=== PATIENT | male | born 1955 | race Caucasian/White ===

== ENCOUNTER 2019-07-08 16:48 | Inpatient (IN) ==
[2019-07-08] MEDS ORDERED: Isovue-370 500 ML BOTTLE IVP ONE (17:18)
[2019-07-08] MEDS ORDERED: 0.9 % Sodium Chloride 1,000 ML IV ONE (17:20)
[2019-07-08] MEDS ORDERED: Ondansetron 4 MG/2 ML VIAL IVP ONE (17:21)
[2019-07-08 17:38] LABS: Basophils % 0.1 %; Hemoglobin 12.9 g/dL (12.9-16.9); Immature Granulocytes % 0.5 % (0-4); Lymphocytes # 1.1 K/mcL (0.6-4.6); Lymphocytes % 8.5 %; Mean Corpuscular HGB Conc 31.5 g/dL (31.6-35.5); Mean Corpuscular Hemoglobin 28.7 pg (28.0-33.3); Mean Corpuscular Volume 91.3 fL (83.0-100.0); Mean Platelet Volume 9.8 fL (9.4-12.4); Monocytes # 0.6 K/mcL (0.0-1.3); Monocytes % 4.9 %; Neutrophils # 11.1 K/mcL (1.6-8.9); Platelet Count 198 K/mcL (140-400); Red Blood Count 4.49 M/mcL (4.19-5.50); Red Cell Distribution Width 13.1 % (11.5-14.5); White Blood Count 12.9 K/mcL (4.3-11.1)
[2019-07-08 17:58] LABS: Albumin 4.6 g/dL (3.5-5.7); Albumin/Globulin Ratio 1.3 (1.1-2.2); Bilirubin,Direct 0.3 mg/dL (0.0-0.2); Bilirubin,Indirect 0.6 mg/dL (0.0-1.0); Bilirubin,Total 0.9 mg/dL (0.3-1.0); Calcium 10.9 mg/dL (8.6-10.3); Globulin 3.6 g/dL (2.4-3.5); Potassium 4.3 mEq/L (3.5-5.1); Total Protein 8.2 g/dL (6.4-8.9)
[2019-07-08] MEDS ORDERED: *HR* HYDROmorphone (PF) 1 MG/ML SYRINGE IVP ONE (18:47)
[2019-07-08 18:51] LABS: Bilirubin,Urine Negative (Negative); Blood,Urine Negative (Negative); Clarity,Urine Clear (Clear); Color,Urine Yellow (Yellow); Glucose,Urine (UA) Normal (Normal); Ketones,Urine 15 mg/dL (Negative); Leukocyte Esterase,Urine Negative (Negative); Nitrite,Urine Negative (Negative); Protein,Urine 30 mg/dL (Neg-Trace); Specific Gravity,Urine 1.023 (1.010-1.025); Urobilinogen,Urine Normal (Normal)
[2019-07-08 18:54] LABS: Bacteria,Urine None Seen per hpf (None-Few); Hyaline Casts,Urine None Seen per lpf (None-Few); Squamous Epithelial Cell,Urine Many per lpf (None-Few)
[2019-07-08] MEDS ORDERED: Naloxone 0.4 MG/ML INJ IVP PRN (19:06)
[2019-07-08] MEDS: Ondansetron 4 MG/2 ML VIAL IVP PRN (22:16)
[2019-07-08] MEDS: Ringers Solution, Lactated 1,000 ML IVC SCH (22:16)
[2019-07-09 05:16] LABS: Basophils % 0.1 %; Hematocrit 36.5 % (37.5-50.1); Hemoglobin 11.8 g/dL (12.9-16.9); Immature Granulocytes % 0.4 % (0-4); Lymphocytes # 0.9 K/mcL (0.6-4.6); Lymphocytes % 7.9 %; Mean Corpuscular HGB Conc 32.3 g/dL (31.6-35.5); Mean Corpuscular Hemoglobin 29.5 pg (28.0-33.3); Mean Corpuscular Volume 91.3 fL (83.0-100.0); Mean Platelet Volume 10.1 fL (9.4-12.4); Monocytes # 0.8 K/mcL (0.0-1.3); Monocytes % 7.5 %; Neutrophils # 9.1 K/mcL (1.6-8.9); Platelet Count 146 K/mcL (140-400); Red Cell Distribution Width 13.1 % (11.5-14.5); Segmented Neutrophils % 84.1 %; White Blood Count 10.8 K/mcL (4.3-11.1)
[2019-07-09 05:37] LABS: BUN/Creatinine Ratio 26 (6-26); Blood Urea Nitrogen 34 mg/dL (8-23); Calcium 9.9 mg/dL (8.6-10.3); Carbon Dioxide 23 mEq/L (23-29); Chloride 107 mEq/L (98-107); Glucose 115 mg/dL (70-105); Magnesium 1.7 mg/dL (1.6-2.6); Osmolality,Calculated 293 (280-300); Potassium 4.2 mEq/L (3.5-5.1); Sodium 137 mEq/L (136-145); eGFR For African Americans > 60 (> 60); eGFR For Non-African Americans 55 (> 60)
[2019-07-09] MEDS: Ondansetron 4 MG/2 ML VIAL IVP PRN (06:25)
[2019-07-09] MEDS: *HR* Heparin 5,000 UNIT/ML VIAL SQ SCH ×2 (06:26→17:47)
[2019-07-09] MEDS: Ringers Solution, Lactated 1,000 ML IVC SCH (08:35)
[2019-07-09] MEDS ORDERED: MYCOPHENOLATE SODIUM 720 MG PO SCH (09:15)
[2019-07-09] MEDS ORDERED: CycloSPORINE, Mod (Neoral) 25 MG CAPSULE PO SCH (09:15)
[2019-07-10] MEDS: *HR* Heparin 5,000 UNIT/ML VIAL SQ SCH ×2 (06:15→17:51)
[2019-07-10] MEDS: CycloSPORINE, Mod (Neoral) 25 MG CAPSULE PO SCH ×2 (10:49→21:04)
[2019-07-10] MEDS: Mycophenolate Sodium (DR) 180 MG TABLET.DR PO SCH ×2 (10:50→21:04)
[2019-07-10] MEDS: Ondansetron 4 MG/2 ML VIAL IVP PRN (17:50)
[2019-07-10] MEDS: Sulfamethoxazole/Trimeth DS 1 EACH TABLET PO SCH ×2 (17:51→18:13)
[2019-07-10] MEDS ORDERED: 0.9 % Sodium Chloride 1,000 ML IV ONE (20:53)
[2019-07-11] MEDS: *HR* Heparin 5,000 UNIT/ML VIAL SQ SCH ×2 (06:04→18:17)
[2019-07-11] MEDS: CycloSPORINE, Mod (Neoral) 25 MG CAPSULE PO SCH ×2 (08:51→21:50)
[2019-07-11] MEDS: Mycophenolate Sodium (DR) 180 MG TABLET.DR PO SCH ×2 (08:51→21:50)
[2019-07-11] MEDS: Aspirin 81 MG TAB.CHEW PO SCH (08:51)
[2019-07-11] MEDS: allopurinoL 100 MG TABLET PO SCH (08:51)
[2019-07-11] MEDS: calcitrioL 0.25 MCG CAPSULE PO SCH (08:51)
[2019-07-11 09:05] LABS: Hematocrit 42.1 % (37.5-50.1); Mean Corpuscular HGB Conc 31.8 g/dL (31.6-35.5); Mean Corpuscular Volume 91.1 fL (83.0-100.0); Mean Platelet Volume 10.3 fL (9.4-12.4); Platelet Count 182 K/mcL (140-400); Red Blood Count 4.62 M/mcL (4.19-5.50); Red Cell Distribution Width 13.2 % (11.5-14.5)
[2019-07-11 09:09] LABS: Hemoglobin 13.4 g/dL (12.9-16.9)
[2019-07-11 09:12] LABS: Calcium 10.3 mg/dL (8.6-10.3); Magnesium 2.2 mg/dL (1.6-2.6); Phosphorous 3.7 mg/dL (2.7-4.5); Potassium 3.6 mEq/L (3.5-5.1)
[2019-07-11] MEDS ORDERED: 0.9 % Sodium Chloride 1,000 ML IVC ONE (09:22)
[2019-07-11 13:28] LABS: Calcium 9.4 mg/dL (8.6-10.3); Potassium 3.3 mEq/L (3.5-5.1)
[2019-07-11] MEDS: 0.9 % Sodium Chloride 1,000 ML IVC SCH ×2 (13:46→21:49)
[2019-07-11] MEDS ORDERED: Potassium Chloride Elixir 20 MEQ/15 ML UDC PO ONE (13:54)
[2019-07-11] MEDS: Ondansetron 4 MG/2 ML VIAL IVP PRN (13:58)
[2019-07-12 04:05] LABS: Hematocrit 34.2 % (37.5-50.1); Mean Corpuscular HGB Conc 31.9 g/dL (31.6-35.5); Mean Corpuscular Hemoglobin 29.5 pg (28.0-33.3); Mean Corpuscular Volume 92.4 fL (83.0-100.0); Mean Platelet Volume 10.7 fL (9.4-12.4); Platelet Count 147 K/mcL (140-400); Red Cell Distribution Width 13.2 % (11.5-14.5); White Blood Count 15.6 K/mcL (4.3-11.1)
[2019-07-12 04:12] LABS: Hemoglobin 10.9 g/dL (12.9-16.9)
[2019-07-12] MEDS: 0.9 % Sodium Chloride 1,000 ML IVC SCH (04:22)
[2019-07-12 04:25] LABS: BUN/Creatinine Ratio 35 (6-26); Blood Urea Nitrogen 42 mg/dL (8-23); Calcium 8.5 mg/dL (8.6-10.3); Carbon Dioxide 27 mEq/L (23-29); Chloride 100 mEq/L (98-107); Glucose 110 mg/dL (70-105); Magnesium 1.9 mg/dL (1.6-2.6); Osmolality,Calculated 291 (280-300); Phosphorous 1.5 mg/dL (2.7-4.5); Potassium 3.6 mEq/L (3.5-5.1); Sodium 135 mEq/L (136-145); eGFR For African Americans > 60 (> 60); eGFR For Non-African Americans > 60 (> 60)
[2019-07-12] MEDS: *HR* Heparin 5,000 UNIT/ML VIAL SQ SCH (05:09)
[2019-07-12 06:56] VITALS: BP 131/71
[2019-07-12] MEDS: calcitrioL 0.25 MCG CAPSULE PO SCH (09:10)
[2019-07-12] MEDS: Mycophenolate Sodium (DR) 180 MG TABLET.DR PO SCH (09:10)
[2019-07-12] MEDS: CycloSPORINE, Mod (Neoral) 25 MG CAPSULE PO SCH (09:10)
[2019-07-12] MEDS: Aspirin 81 MG TAB.CHEW PO SCH (09:10)
[2019-07-12] MEDS: allopurinoL 100 MG TABLET PO SCH (09:10)
[2019-07-13] MEDS ORDERED: NON-FORMULARY MEDICATION 1 EACH EACH (Alendronate Sodium [Fosamax] 70 MG) PO SCH (14:57)
== END 2019-07-12 12:02 | disposition home or self-care (01) | DRG 389 ==
LOC: 3ANU 16:48 → EMEROOARM 16:48 → SUATTDRO 20:07 → 3ANU 20:37
PROVIDERS: ADMIT Family Medicine; ATTEND Internal Medicine

== ENCOUNTER 2020-07-10 14:33 | Inpatient (IN) ==
[2020-07-10] MEDS ORDERED: Ipratropium 1 PUFF INHALER IH ONE (15:06)
[2020-07-10 15:13] LABS: Basophils % 0.1 %; Eosinophils % 0.3 %; Hematocrit 33.5 % (37.5-50.1); Hemoglobin 11.1 g/dL (12.9-16.9); Immature Granulocytes % 0.6 % (0-4); Lymphocytes # 0.8 K/mcL (0.6-4.6); Lymphocytes % 7.8 %; Mean Corpuscular HGB Conc 33.1 g/dL (31.6-35.5); Mean Corpuscular Hemoglobin 28.7 pg (28.0-33.3); Mean Corpuscular Volume 86.6 fL (83.0-100.0); Mean Platelet Volume 9.7 fL (9.4-12.4); Monocytes % 9.5 %; Neutrophils # 8.8 K/mcL (1.6-8.9); Platelet Count 224 K/mcL (140-400); Red Blood Count 3.87 M/mcL (4.19-5.50); Red Cell Distribution Width 14.1 % (11.5-14.5); Segmented Neutrophils % 81.7 %; White Blood Count 10.7 K/mcL (4.3-11.1)
[2020-07-10 15:22] LABS: INR 1.7; Prothrombin Time 19.9 Seconds (9.4-12.1)
[2020-07-10 15:23] LABS: Activated Partial Thrombo Time 25.2 Seconds (26.0-36.0)
[2020-07-10 15:37] LABS: Alanine Aminotransferase 40 Units/L (7-52); Albumin 2.7 g/dL (3.5-5.7); Albumin/Globulin Ratio 0.7 (1.1-2.2); Alkaline Phosphatase 99 Units/L (34-104); Aspartate Amino Transferase 29 Units/L (13-39); BUN/Creatinine Ratio 22 (6-26); Bilirubin,Direct 0.3 mg/dL (0.0-0.2); Bilirubin,Indirect 0.6 mg/dL (0.0-1.0); Bilirubin,Total 0.9 mg/dL (0.3-1.0); Blood Urea Nitrogen 23 mg/dL (8-23); C-Reactive Protein 179 mg/L (Less than 10); Carbon Dioxide 19 mEq/L (23-29); Chloride 98 mEq/L (98-107); Globulin 3.8 g/dL (2.4-3.5); Glucose 117 mg/dL (70-105); Lactate Dehydrogenase 167 Units/L (140-271); Magnesium 1.7 mg/dL (1.6-2.6); Osmolality,Calculated 273 (280-300); Phosphorous 2.4 mg/dL (2.7-4.5); Sodium 129 mEq/L (136-145); Total Protein 6.5 g/dL (6.4-8.9); Troponin I 0.03 ng/mL (< 0.04); eGFR For African Americans > 60 (> 60); eGFR For Non-African Americans > 60 (> 60)
[2020-07-10] MEDS ORDERED: Isovue-370 500 ML BOTTLE IVP ONE (15:53)
[2020-07-10 15:55] LABS: Ferritin 664 ng/mL (20-250)
[2020-07-10] MEDS ORDERED: cefTRIAXone 1,000 MG in Water for inj. (sterile) 10 ML IVP ONE (16:13)
[2020-07-10] MEDS ORDERED: Azithromycin 500 MG in 0.9 % Sodium Chloride 250 ML IVPB ONE (16:13)
[2020-07-10 16:32] LABS: Adenovirus Not Detected (Not Detect); Coronavirus 229E Not Detected (Not Detect); Coronavirus HKU1 Not Detected (Not Detect); Coronavirus NL63 Not Detected (Not Detect); Coronavirus OC43 Not Detected (Not Detect)
[2020-07-10 16:40] LABS: Human Metapneumovirus Not Detected (Not Detect); Human Rhinovirus/Enterovirus Not Detected (Not Detect); SARS-CoV-2 DETECTED (Not Detect)
[2020-07-10 16:41] LABS: Bordetella Pertussis Not Detected (Not Detect); Chlamydophila pneumoniae Not Detected (Not Detect); Influenza A Subtype 2009 H1 Not Detected (Not Detect); Influenza B Not Detected (Not Detect); Mycoplasma pneumoniae Not Detected (Not Detect); Parainfluenza Virus 1 Not Detected (Not Detect); Parainfluenza Virus 2 Not Detected (Not Detect); Parainfluenza Virus 3 Not Detected (Not Detect); Parainfluenza Virus 4 Not Detected (Not Detect); Respiratory Syncytial Virus Not Detected (Not Detect)
[2020-07-10] MEDS ORDERED: Piperacillin/Tazobactam 3.375 GM in 0.9 % Sodium Chloride Mini Bag 100 ML IVPB ONE (16:43)
[2020-07-10] MEDS ORDERED: Melatonin 3 MG TABLET PO PRN (16:58)
[2020-07-10] MEDS ORDERED: Ondansetron 4 MG/2 ML VIAL IVP PRN (16:58)
[2020-07-10] MEDS ORDERED: Piperacillin/Tazobactam 3.375 GM in Water for inj. (sterile) 20 ML IVP STA (17:19)
[2020-07-10 17:20] LABS: ABG Base Excess -3 mEq/L (-2 to 3); ABG HCO3 20 mEq/L (21-27); ABG Oxygen Saturation 94 % (95-98); ABG PCO2 28 mmHg (35-45); ABG PH 7.46 pH Units (7.32-7.45); ABG PO2 65 mmHg (85-104); ABG TCO2 20 mEq/L (20-26)
[2020-07-10] MEDS: levoFLOXacin 750 MG/150 ML 750 MG/150 ML BAG IVPB SCH (17:51)
[2020-07-10] MEDS: Dexamethasone Sodium Phos/PF 10 MG/ML VIAL IVP SCH (17:59)
[2020-07-10] MEDS: *HR* Enoxaparin 40 MG/0.4 ML SYRINGE SQ SCH (20:13)
[2020-07-10] MEDS: Mycophenolate Sodium (DR) 180 MG TABLET.DR PO SCH (20:34)
[2020-07-10] MEDS: CycloSPORINE, Mod (Neoral) 25 MG CAPSULE PO SCH (20:35)
[2020-07-10] MEDS: Acetaminophen 325 MG TABLET PO PRN (22:36)
[2020-07-11] MEDS: Piperacillin/Tazobactam 3.375 GM in 0.9 % Sodium Chloride Mini Bag 100 ML IVPB SCH ×4 (00:10→22:55)
[2020-07-11 00:47] LABS: Hematocrit 30.6 % (37.5-50.1); Hemoglobin 10.1 g/dL (12.9-16.9); Immature Granulocytes % 0.6 % (0-4); Lymphocytes # 0.4 K/mcL (0.6-4.6); Lymphocytes % 3.7 %; Mean Corpuscular Hemoglobin 28.6 pg (28.0-33.3); Mean Corpuscular Volume 86.7 fL (83.0-100.0); Mean Platelet Volume 9.8 fL (9.4-12.4); Monocytes # 0.2 K/mcL (0.0-1.3); Monocytes % 1.7 %; Neutrophils # 9.3 K/mcL (1.6-8.9); Platelet Count 189 K/mcL (140-400); Red Blood Count 3.53 M/mcL (4.19-5.50); Red Cell Distribution Width 14.1 % (11.5-14.5); White Blood Count 9.9 K/mcL (4.3-11.1)
[2020-07-11 00:58] LABS: Prothrombin Time 22.7 Seconds (9.4-12.1)
[2020-07-11 01:06] LABS: Alanine Aminotransferase 34 Units/L (7-52); Albumin 2.5 g/dL (3.5-5.7); Albumin/Globulin Ratio 0.7 (1.1-2.2); Alkaline Phosphatase 98 Units/L (34-104); Aspartate Amino Transferase 28 Units/L (13-39); BUN/Creatinine Ratio 20 (6-26); Bilirubin,Direct 0.5 mg/dL (0.0-0.2); Bilirubin,Indirect 0.5 mg/dL (0.0-1.0); Blood Urea Nitrogen 25 mg/dL (8-23); Calcium 8.7 mg/dL (8.6-10.3); Carbon Dioxide 17 mEq/L (23-29); Chloride 100 mEq/L (98-107); Globulin 3.7 g/dL (2.4-3.5); Glucose 126 mg/dL (70-105); Magnesium 1.6 mg/dL (1.6-2.6); Osmolality,Calculated 274 (280-300); Phosphorous 3.9 mg/dL (2.7-4.5); Potassium 4.6 mEq/L (3.5-5.1); Sodium 129 mEq/L (136-145); Total Protein 6.2 g/dL (6.4-8.9); eGFR For African Americans > 60 (> 60); eGFR For Non-African Americans 59 (> 60)
[2020-07-11] MEDS: CycloSPORINE, Mod (Neoral) 25 MG CAPSULE PO SCH ×2 (07:26→17:08)
[2020-07-11] MEDS: *HR* Enoxaparin 40 MG/0.4 ML SYRINGE SQ SCH ×2 (07:26→17:08)
[2020-07-11] MEDS: Dexamethasone Sodium Phos/PF 10 MG/ML VIAL IVP SCH (08:45)
[2020-07-11] MEDS: allopurinoL 100 MG TABLET PO SCH (08:47)
[2020-07-11] MEDS: Mycophenolate Sodium (DR) 180 MG TABLET.DR PO SCH ×2 (08:47→21:19)
[2020-07-11] MEDS: calcitrioL 0.25 MCG CAPSULE PO SCH (08:47)
[2020-07-11] MEDS: Acetaminophen 325 MG TABLET PO PRN ×2 (10:07→17:08)
[2020-07-11] MEDS: levoFLOXacin 750 MG/150 ML 750 MG/150 ML BAG IVPB SCH (17:05)
[2020-07-12 01:38] LABS: Hematocrit 30.4 % (37.5-50.1); Hemoglobin 10.3 g/dL (12.9-16.9); Mean Corpuscular HGB Conc 33.9 g/dL (31.6-35.5); Mean Corpuscular Hemoglobin 29.3 pg (28.0-33.3); Mean Corpuscular Volume 86.4 fL (83.0-100.0); Mean Platelet Volume 9.6 fL (9.4-12.4); Platelet Count 204 K/mcL (140-400); Red Blood Count 3.52 M/mcL (4.19-5.50); Red Cell Distribution Width 14.1 % (11.5-14.5)
[2020-07-12 01:55] LABS: BUN/Creatinine Ratio 36 (6-26); Blood Urea Nitrogen 47 mg/dL (8-23); Calcium 8.9 mg/dL (8.6-10.3); Carbon Dioxide 20 mEq/L (23-29); Chloride 101 mEq/L (98-107); Glucose 240 mg/dL (70-105); Osmolality,Calculated 292 (280-300); Potassium 4.1 mEq/L (3.5-5.1); Sodium 131 mEq/L (136-145); eGFR For African Americans > 60 (> 60); eGFR For Non-African Americans 55 (> 60)
[2020-07-12] MEDS: *HR* Enoxaparin 40 MG/0.4 ML SYRINGE SQ SCH (05:37)
[2020-07-12] MEDS: CycloSPORINE, Mod (Neoral) 25 MG CAPSULE PO SCH ×2 (05:37→17:02)
[2020-07-12] MEDS: Piperacillin/Tazobactam 3.375 GM in 0.9 % Sodium Chloride Mini Bag 100 ML IVPB SCH ×3 (07:52→23:38)
[2020-07-12] MEDS: allopurinoL 100 MG TABLET PO SCH (07:53)
[2020-07-12] MEDS: Dexamethasone Sodium Phos/PF 10 MG/ML VIAL IVP SCH (07:53)
[2020-07-12] MEDS: calcitrioL 0.25 MCG CAPSULE PO SCH (07:53)
[2020-07-12] MEDS: Mycophenolate Sodium (DR) 180 MG TABLET.DR PO SCH ×2 (09:27→19:43)
[2020-07-12] MEDS: Acetaminophen 325 MG TABLET PO PRN (09:27)
[2020-07-12] MEDS: Famotidine 20 MG TABLET PO SCH ×2 (11:04→19:43)
[2020-07-12] MEDS: Sennosides 8.6 MG TABLET PO SCH (11:05)
[2020-07-12] MEDS: polyethylene glycoL 3350 17 GM POWD.PACK PO SCH (11:05)
[2020-07-12] MEDS: levoFLOXacin 750 MG/150 ML 750 MG/150 ML BAG IVPB SCH (17:00)
[2020-07-13 01:56] LABS: Hematocrit 32.7 % (37.5-50.1); Hemoglobin 10.7 g/dL (12.9-16.9); Mean Corpuscular HGB Conc 32.7 g/dL (31.6-35.5); Mean Corpuscular Hemoglobin 28.7 pg (28.0-33.3); Mean Corpuscular Volume 87.7 fL (83.0-100.0); Mean Platelet Volume 9.7 fL (9.4-12.4); Platelet Count 218 K/mcL (140-400); Red Blood Count 3.73 M/mcL (4.19-5.50); Red Cell Distribution Width 14.2 % (11.5-14.5)
[2020-07-13 01:57] LABS: White Blood Count 15.9 K/mcL (4.3-11.1)
[2020-07-13 02:16] LABS: BUN/Creatinine Ratio 40 (6-26); Blood Urea Nitrogen 47 mg/dL (8-23); Calcium 8.9 mg/dL (8.6-10.3); Carbon Dioxide 18 mEq/L (23-29); Chloride 106 mEq/L (98-107); Glucose 159 mg/dL (70-105); Osmolality,Calculated 294 (280-300); Potassium 4.6 mEq/L (3.5-5.1); Sodium 134 mEq/L (136-145); eGFR For African Americans > 60 (> 60); eGFR For Non-African Americans > 60 (> 60)
[2020-07-13] MEDS: Acetaminophen 325 MG TABLET PO PRN (04:11)
[2020-07-13] MEDS: CycloSPORINE, Mod (Neoral) 25 MG CAPSULE PO SCH ×2 (04:11→16:09)
[2020-07-13] MEDS: *HR* Enoxaparin 40 MG/0.4 ML SYRINGE SQ SCH (04:14)
[2020-07-13] MEDS ORDERED: Furosemide 20 MG/2 ML VIAL IVP ONE (07:22)
[2020-07-13] MEDS: Dexamethasone Sodium Phos/PF 10 MG/ML VIAL IVP SCH (08:04)
[2020-07-13] MEDS: Sennosides 8.6 MG TABLET PO SCH (08:05)
[2020-07-13] MEDS: polyethylene glycoL 3350 17 GM POWD.PACK PO SCH (08:05)
[2020-07-13] MEDS: Mycophenolate Sodium (DR) 180 MG TABLET.DR PO SCH ×2 (08:05→19:53)
[2020-07-13] MEDS: calcitrioL 0.25 MCG CAPSULE PO SCH (08:05)
[2020-07-13] MEDS: Famotidine 20 MG TABLET PO SCH ×2 (08:05→19:53)
[2020-07-13] MEDS: allopurinoL 100 MG TABLET PO SCH (08:05)
[2020-07-13] MEDS: Piperacillin/Tazobactam 3.375 GM in 0.9 % Sodium Chloride Mini Bag 100 ML IVPB SCH ×2 (08:05→16:09)
[2020-07-13] MEDS: levoFLOXacin 750 MG/150 ML 750 MG/150 ML BAG IVPB SCH (16:09)
[2020-07-14] MEDS: Piperacillin/Tazobactam 3.375 GM in 0.9 % Sodium Chloride Mini Bag 100 ML IVPB SCH ×4 (00:05→23:31)
[2020-07-14 01:03] LABS: Hematocrit 32.3 % (37.5-50.1); Hemoglobin 10.4 g/dL (12.9-16.9); Mean Corpuscular HGB Conc 32.2 g/dL (31.6-35.5); Mean Corpuscular Hemoglobin 28.3 pg (28.0-33.3); Mean Corpuscular Volume 87.8 fL (83.0-100.0); Platelet Count 197 K/mcL (140-400); Red Blood Count 3.68 M/mcL (4.19-5.50); Red Cell Distribution Width 14.1 % (11.5-14.5); White Blood Count 13.6 K/mcL (4.3-11.1)
[2020-07-14 01:22] LABS: BUN/Creatinine Ratio 39 (6-26); Blood Urea Nitrogen 49 mg/dL (8-23); Calcium 8.6 mg/dL (8.6-10.3); Carbon Dioxide 21 mEq/L (23-29); Chloride 104 mEq/L (98-107); Glucose 149 mg/dL (70-105); Osmolality,Calculated 292 (280-300); Phosphorous 2.6 mg/dL (2.7-4.5); Potassium 4.4 mEq/L (3.5-5.1); Sodium 133 mEq/L (136-145); eGFR For African Americans > 60 (> 60); eGFR For Non-African Americans 57 (> 60)
[2020-07-14] MEDS: *HR* Enoxaparin 40 MG/0.4 ML SYRINGE SQ SCH (06:29)
[2020-07-14] MEDS: CycloSPORINE, Mod (Neoral) 25 MG CAPSULE PO SCH ×2 (06:29→18:24)
[2020-07-14] MEDS: calcitrioL 0.25 MCG CAPSULE PO SCH (08:20)
[2020-07-14] MEDS: Dexamethasone Sodium Phos/PF 10 MG/ML VIAL IVP SCH (08:20)
[2020-07-14] MEDS: allopurinoL 100 MG TABLET PO SCH (08:21)
[2020-07-14] MEDS: Famotidine 20 MG TABLET PO SCH ×2 (08:21→20:06)
[2020-07-14] MEDS: Mycophenolate Sodium (DR) 180 MG TABLET.DR PO SCH ×2 (08:22→20:06)
[2020-07-14] MEDS: Sennosides 8.6 MG TABLET PO SCH (08:24)
[2020-07-14] MEDS: polyethylene glycoL 3350 17 GM POWD.PACK PO SCH (08:24)
[2020-07-14] MEDS ORDERED: Furosemide 20 MG/2 ML VIAL IVP ONE (10:38)
[2020-07-14] MEDS: Acetaminophen 325 MG TABLET PO PRN (11:55)
[2020-07-14] MEDS: levoFLOXacin 750 MG/150 ML 750 MG/150 ML BAG IVPB SCH (16:46)
[2020-07-15 01:43] LABS: Hematocrit 36.2 % (37.5-50.1); Hemoglobin 11.8 g/dL (12.9-16.9); Mean Corpuscular HGB Conc 32.6 g/dL (31.6-35.5); Mean Corpuscular Hemoglobin 28.1 pg (28.0-33.3); Mean Corpuscular Volume 86.2 fL (83.0-100.0); Platelet Count 213 K/mcL (140-400); Red Cell Distribution Width 14.2 % (11.5-14.5); White Blood Count 11.7 K/mcL (4.3-11.1)
[2020-07-15 02:04] LABS: BUN/Creatinine Ratio 36 (6-26); Blood Urea Nitrogen 43 mg/dL (8-23); Calcium 9.3 mg/dL (8.6-10.3); Carbon Dioxide 21 mEq/L (23-29); Chloride 102 mEq/L (98-107); Glucose 92 mg/dL (70-105); Osmolality,Calculated 284 (280-300); Phosphorous 3.3 mg/dL (2.7-4.5); Potassium 4.3 mEq/L (3.5-5.1); Sodium 132 mEq/L (136-145); eGFR For African Americans > 60 (> 60); eGFR For Non-African Americans > 60 (> 60)
[2020-07-15] MEDS: *HR* Enoxaparin 40 MG/0.4 ML SYRINGE SQ SCH (05:53)
[2020-07-15] MEDS: CycloSPORINE, Mod (Neoral) 25 MG CAPSULE PO SCH ×2 (05:54→17:19)
[2020-07-15] MEDS: Mycophenolate Sodium (DR) 180 MG TABLET.DR PO SCH ×2 (08:12→20:28)
[2020-07-15] MEDS: calcitrioL 0.25 MCG CAPSULE PO SCH (08:12)
[2020-07-15] MEDS: Famotidine 20 MG TABLET PO SCH ×2 (08:12→20:28)
[2020-07-15] MEDS: polyethylene glycoL 3350 17 GM POWD.PACK PO SCH (08:12)
[2020-07-15] MEDS: Furosemide 20 MG/2 ML VIAL IVP SCH ×2 (08:12→20:28)
[2020-07-15] MEDS: Dexamethasone Sodium Phos/PF 10 MG/ML VIAL IVP SCH (08:12)
[2020-07-15] MEDS: Piperacillin/Tazobactam 3.375 GM in 0.9 % Sodium Chloride Mini Bag 100 ML IVPB SCH ×3 (08:13→23:55)
[2020-07-15] MEDS: Sennosides 8.6 MG TABLET PO SCH ×2 (08:13→08:45)
[2020-07-15] MEDS: allopurinoL 100 MG TABLET PO SCH (08:13)
[2020-07-15] MEDS: Acetaminophen 325 MG TABLET PO PRN (09:49)
[2020-07-15] MEDS: Preparation H Ointment 57 GM TUBE TP SCH ×2 (14:14→20:29)
[2020-07-15] MEDS: traZODone 50 MG TABLET PO SCH (20:28)
[2020-07-16 02:21] LABS: Hematocrit 35.7 % (37.5-50.1); Hemoglobin 11.5 g/dL (12.9-16.9); Mean Corpuscular HGB Conc 32.2 g/dL (31.6-35.5); Mean Corpuscular Hemoglobin 28.2 pg (28.0-33.3); Mean Corpuscular Volume 87.5 fL (83.0-100.0); Mean Platelet Volume 10.4 fL (9.4-12.4); Platelet Count 207 K/mcL (140-400); Red Blood Count 4.08 M/mcL (4.19-5.50); Red Cell Distribution Width 14.2 % (11.5-14.5); White Blood Count 12.7 K/mcL (4.3-11.1)
[2020-07-16 02:44] LABS: BUN/Creatinine Ratio 43 (6-26); Blood Urea Nitrogen 52 mg/dL (8-23); Calcium 9.2 mg/dL (8.6-10.3); Carbon Dioxide 21 mEq/L (23-29); Chloride 101 mEq/L (98-107); Glucose 107 mg/dL (70-105); Magnesium 1.9 mg/dL (1.6-2.6); Osmolality,Calculated 289 (280-300); Potassium 4.3 mEq/L (3.5-5.1); Sodium 132 mEq/L (136-145); eGFR For African Americans > 60 (> 60); eGFR For Non-African Americans 60 (> 60)
[2020-07-16] MEDS: *HR* Enoxaparin 40 MG/0.4 ML SYRINGE SQ SCH (04:12)
[2020-07-16] MEDS: CycloSPORINE, Mod (Neoral) 25 MG CAPSULE PO SCH ×2 (04:12→17:06)
[2020-07-16] MEDS: Furosemide 20 MG/2 ML VIAL IVP SCH ×2 (08:05→20:51)
[2020-07-16] MEDS: Acetaminophen 325 MG TABLET PO PRN (08:05)
[2020-07-16] MEDS: Dexamethasone Sodium Phos/PF 10 MG/ML VIAL IVP SCH (08:05)
[2020-07-16] MEDS: allopurinoL 100 MG TABLET PO SCH (08:06)
[2020-07-16] MEDS: Mycophenolate Sodium (DR) 180 MG TABLET.DR PO SCH ×2 (08:06→20:52)
[2020-07-16] MEDS: calcitrioL 0.25 MCG CAPSULE PO SCH (08:06)
[2020-07-16] MEDS: Sennosides 8.6 MG TABLET PO SCH (08:06)
[2020-07-16] MEDS: Famotidine 20 MG TABLET PO SCH ×2 (08:06→20:52)
[2020-07-16] MEDS: polyethylene glycoL 3350 17 GM POWD.PACK PO SCH (08:07)
[2020-07-16] MEDS: Preparation H Ointment 57 GM TUBE TP SCH ×2 (08:07→20:52)
[2020-07-16] MEDS: traZODone 50 MG TABLET PO SCH (20:52)
[2020-07-17 01:08] LABS: Hematocrit 39.9 % (37.5-50.1); Hemoglobin 12.7 g/dL (12.9-16.9); Mean Corpuscular HGB Conc 31.8 g/dL (31.6-35.5); Mean Corpuscular Hemoglobin 28.1 pg (28.0-33.3); Mean Corpuscular Volume 88.3 fL (83.0-100.0); Mean Platelet Volume 10.1 fL (9.4-12.4); Platelet Count 241 K/mcL (140-400); Red Blood Count 4.52 M/mcL (4.19-5.50); Red Cell Distribution Width 14.1 % (11.5-14.5); White Blood Count 13.7 K/mcL (4.3-11.1)
[2020-07-17 01:29] LABS: BUN/Creatinine Ratio 38 (6-26); Blood Urea Nitrogen 49 mg/dL (8-23); Calcium 9.8 mg/dL (8.6-10.3); Carbon Dioxide 22 mEq/L (23-29); Chloride 98 mEq/L (98-107); Glucose 98 mg/dL (70-105); Osmolality,Calculated 285 (280-300); Potassium 4.6 mEq/L (3.5-5.1); Sodium 131 mEq/L (136-145); eGFR For African Americans > 60 (> 60); eGFR For Non-African Americans 55 (> 60)
[2020-07-17] MEDS: *HR* Enoxaparin 40 MG/0.4 ML SYRINGE SQ SCH (04:59)
[2020-07-17] MEDS: CycloSPORINE, Mod (Neoral) 25 MG CAPSULE PO SCH ×2 (04:59→17:18)
[2020-07-17] MEDS: Dexamethasone Sodium Phos/PF 10 MG/ML VIAL IVP SCH (07:57)
[2020-07-17] MEDS: Sennosides 8.6 MG TABLET PO SCH (07:58)
[2020-07-17] MEDS: Mycophenolate Sodium (DR) 180 MG TABLET.DR PO SCH ×2 (07:58→21:12)
[2020-07-17] MEDS: calcitrioL 0.25 MCG CAPSULE PO SCH (07:58)
[2020-07-17] MEDS: allopurinoL 100 MG TABLET PO SCH (07:58)
[2020-07-17] MEDS: Furosemide 20 MG/2 ML VIAL IVP SCH ×3 (07:58→21:13)
[2020-07-17] MEDS: Famotidine 20 MG TABLET PO SCH ×2 (07:59→21:12)
[2020-07-17] MEDS: polyethylene glycoL 3350 17 GM POWD.PACK PO SCH (07:59)
[2020-07-17] MEDS: Preparation H Ointment 57 GM TUBE TP SCH ×2 (07:59→21:13)
[2020-07-17] MEDS: Acetaminophen 325 MG TABLET PO PRN (09:17)
[2020-07-17] MEDS: traZODone 50 MG TABLET PO SCH (21:12)
[2020-07-18 01:47] LABS: Hematocrit 35.7 % (37.5-50.1); Hemoglobin 11.8 g/dL (12.9-16.9); Mean Corpuscular HGB Conc 33.1 g/dL (31.6-35.5); Mean Corpuscular Hemoglobin 29.1 pg (28.0-33.3); Mean Corpuscular Volume 87.9 fL (83.0-100.0); Platelet Count 241 K/mcL (140-400); Red Blood Count 4.06 M/mcL (4.19-5.50); Red Cell Distribution Width 14.2 % (11.5-14.5); White Blood Count 13.9 K/mcL (4.3-11.1)
[2020-07-18 02:03] LABS: BUN/Creatinine Ratio 52 (6-26); Blood Urea Nitrogen 58 mg/dL (8-23); Calcium 9.1 mg/dL (8.6-10.3); Carbon Dioxide 23 mEq/L (23-29); Chloride 98 mEq/L (98-107); Glucose 115 mg/dL (70-105); Magnesium 1.9 mg/dL (1.6-2.6); Osmolality,Calculated 285 (280-300); Potassium 4.1 mEq/L (3.5-5.1); Sodium 129 mEq/L (136-145); eGFR For African Americans > 60 (> 60); eGFR For Non-African Americans > 60 (> 60)
[2020-07-18] MEDS: CycloSPORINE, Mod (Neoral) 25 MG CAPSULE PO SCH ×2 (04:35→17:37)
[2020-07-18] MEDS: *HR* Enoxaparin 40 MG/0.4 ML SYRINGE SQ SCH (04:35)
[2020-07-18] MEDS: Acetaminophen 325 MG TABLET PO PRN ×2 (04:36→20:48)
[2020-07-18] MEDS: calcitrioL 0.25 MCG CAPSULE PO SCH (08:09)
[2020-07-18] MEDS: Mycophenolate Sodium (DR) 180 MG TABLET.DR PO SCH ×2 (08:09→20:47)
[2020-07-18] MEDS: Sennosides 8.6 MG TABLET PO SCH (08:09)
[2020-07-18] MEDS: Dexamethasone Sodium Phos/PF 10 MG/ML VIAL IVP SCH (08:09)
[2020-07-18] MEDS: allopurinoL 100 MG TABLET PO SCH (08:09)
[2020-07-18] MEDS: Famotidine 20 MG TABLET PO SCH ×2 (08:09→20:47)
[2020-07-18] MEDS: Furosemide 20 MG/2 ML VIAL IVP SCH (08:10)
[2020-07-18] MEDS: polyethylene glycoL 3350 17 GM POWD.PACK PO SCH ×2 (08:12→08:25)
[2020-07-18] MEDS: Preparation H Ointment 57 GM TUBE TP SCH ×2 (08:25→20:50)
[2020-07-18] MEDS: traZODone 50 MG TABLET PO SCH (20:49)
[2020-07-19] MEDS: CycloSPORINE, Mod (Neoral) 25 MG CAPSULE PO SCH ×2 (05:44→16:44)
[2020-07-19] MEDS: *HR* Enoxaparin 40 MG/0.4 ML SYRINGE SQ SCH (05:45)
[2020-07-19] MEDS: polyethylene glycoL 3350 17 GM POWD.PACK PO SCH (08:36)
[2020-07-19] MEDS: Sennosides 8.6 MG TABLET PO SCH (08:36)
[2020-07-19] MEDS: Famotidine 20 MG TABLET PO SCH (09:32)
[2020-07-19] MEDS: allopurinoL 100 MG TABLET PO SCH (09:32)
[2020-07-19] MEDS: calcitrioL 0.25 MCG CAPSULE PO SCH (09:32)
[2020-07-19] MEDS: Mycophenolate Sodium (DR) 180 MG TABLET.DR PO SCH ×2 (09:32→21:12)
[2020-07-19] MEDS: Dexamethasone Sodium Phos/PF 10 MG/ML VIAL IVP SCH (09:33)
[2020-07-19] MEDS ORDERED: Furosemide 20 MG TABLET PO SCH (09:45)
[2020-07-19] MEDS: Preparation H Ointment 57 GM TUBE TP SCH ×2 (09:47→21:34)
[2020-07-19] MEDS: Acetaminophen 325 MG TABLET PO PRN (17:03)
[2020-07-19] MEDS: traZODone 50 MG TABLET PO SCH (21:12)
[2020-07-20 02:39] LABS: Hematocrit 36.4 % (37.5-50.1); Hemoglobin 11.8 g/dL (12.9-16.9); Mean Corpuscular HGB Conc 32.4 g/dL (31.6-35.5); Mean Corpuscular Hemoglobin 28.2 pg (28.0-33.3); Mean Corpuscular Volume 87.1 fL (83.0-100.0); Mean Platelet Volume 10.1 fL (9.4-12.4); Platelet Count 346 K/mcL (140-400); Red Blood Count 4.18 M/mcL (4.19-5.50); Red Cell Distribution Width 14.3 % (11.5-14.5); White Blood Count 13.9 K/mcL (4.3-11.1)
[2020-07-20 03:03] LABS: BUN/Creatinine Ratio 46 (6-26); Blood Urea Nitrogen 50 mg/dL (8-23); Calcium 9.4 mg/dL (8.6-10.3); Carbon Dioxide 23 mEq/L (23-29); Chloride 99 mEq/L (98-107); Glucose 97 mg/dL (70-105); Magnesium 1.8 mg/dL (1.6-2.6); Osmolality,Calculated 285 (280-300); Potassium 4.4 mEq/L (3.5-5.1); Sodium 131 mEq/L (136-145); eGFR For African Americans > 60 (> 60); eGFR For Non-African Americans > 60 (> 60)
[2020-07-20] MEDS: CycloSPORINE, Mod (Neoral) 25 MG CAPSULE PO SCH ×2 (05:22→17:21)
[2020-07-20] MEDS: *HR* Enoxaparin 40 MG/0.4 ML SYRINGE SQ SCH (05:22)
[2020-07-20] MEDS: Acetaminophen 325 MG TABLET PO PRN ×2 (05:40→19:47)
[2020-07-20] MEDS: calcitrioL 0.25 MCG CAPSULE PO SCH (09:36)
[2020-07-20] MEDS: allopurinoL 100 MG TABLET PO SCH (09:36)
[2020-07-20] MEDS: Sulfamethoxazole/Trimeth DS 1 EACH TABLET PO SCH (09:36)
[2020-07-20] MEDS: Mycophenolate Sodium (DR) 180 MG TABLET.DR PO SCH ×2 (09:36→19:47)
[2020-07-20] MEDS: Famotidine 20 MG TABLET PO SCH (09:36)
[2020-07-20] MEDS: Dexamethasone 4 MG/ML VIAL IVP SCH (09:37)
[2020-07-20] MEDS: Preparation H Ointment 57 GM TUBE TP SCH ×2 (09:38→19:48)
[2020-07-20] MEDS: Sennosides 8.6 MG TABLET PO SCH (09:38)
[2020-07-20] MEDS: polyethylene glycoL 3350 17 GM POWD.PACK PO SCH (09:38)
[2020-07-20] MEDS: traZODone 50 MG TABLET PO SCH (19:47)
[2020-07-21] MEDS: CycloSPORINE, Mod (Neoral) 25 MG CAPSULE PO SCH ×2 (05:20→17:02)
[2020-07-21] MEDS: *HR* Enoxaparin 40 MG/0.4 ML SYRINGE SQ SCH (05:21)
[2020-07-21] MEDS: Sennosides 8.6 MG TABLET PO SCH (07:29)
[2020-07-21] MEDS: Preparation H Ointment 57 GM TUBE TP SCH ×2 (07:29→21:11)
[2020-07-21] MEDS: polyethylene glycoL 3350 17 GM POWD.PACK PO SCH (07:30)
[2020-07-21] MEDS: Sulfamethoxazole/Trimeth DS 1 EACH TABLET PO SCH (07:41)
[2020-07-21] MEDS: Dexamethasone 4 MG/ML VIAL IVP SCH (07:41)
[2020-07-21] MEDS: allopurinoL 100 MG TABLET PO SCH (07:42)
[2020-07-21] MEDS: Mycophenolate Sodium (DR) 180 MG TABLET.DR PO SCH ×2 (07:42→21:08)
[2020-07-21] MEDS: Famotidine 20 MG TABLET PO SCH (07:42)
[2020-07-21] MEDS: calcitrioL 0.25 MCG CAPSULE PO SCH (07:42)
[2020-07-21] MEDS: Acetaminophen 325 MG TABLET PO PRN ×3 (07:47→23:12)
[2020-07-21] MEDS: traZODone 50 MG TABLET PO SCH (21:07)
[2020-07-22 02:50] LABS: Hematocrit 33.9 % (37.5-50.1); Hemoglobin 11.1 g/dL (12.9-16.9); Mean Corpuscular HGB Conc 32.7 g/dL (31.6-35.5); Mean Corpuscular Hemoglobin 28.7 pg (28.0-33.3); Mean Corpuscular Volume 87.6 fL (83.0-100.0); Mean Platelet Volume 9.6 fL (9.4-12.4); Platelet Count 347 K/mcL (140-400); Red Blood Count 3.87 M/mcL (4.19-5.50); Red Cell Distribution Width 14.6 % (11.5-14.5); White Blood Count 15.4 K/mcL (4.3-11.1)
[2020-07-22 03:09] LABS: BUN/Creatinine Ratio 37 (6-26); Blood Urea Nitrogen 45 mg/dL (8-23); Calcium 9.2 mg/dL (8.6-10.3); Carbon Dioxide 24 mEq/L (23-29); Chloride 100 mEq/L (98-107); Glucose 94 mg/dL (70-105); Osmolality,Calculated 287 (280-300); Potassium 4.8 mEq/L (3.5-5.1); Sodium 133 mEq/L (136-145); eGFR For African Americans > 60 (> 60); eGFR For Non-African Americans 60 (> 60)
[2020-07-22] MEDS: *HR* Enoxaparin 40 MG/0.4 ML SYRINGE SQ SCH (05:15)
[2020-07-22] MEDS: CycloSPORINE, Mod (Neoral) 25 MG CAPSULE PO SCH ×2 (05:16→17:01)
[2020-07-22] MEDS: Acetaminophen 325 MG TABLET PO PRN ×2 (05:16→23:13)
[2020-07-22] MEDS ORDERED: Haloperidol Lactate 5 MG/ML VIAL IVP ONE (06:37)
[2020-07-22] MEDS: Sennosides 8.6 MG TABLET PO SCH (09:20)
[2020-07-22] MEDS: Preparation H Ointment 57 GM TUBE TP SCH ×2 (09:20→20:00)
[2020-07-22] MEDS: polyethylene glycoL 3350 17 GM POWD.PACK PO SCH (09:20)
[2020-07-22] MEDS: Mycophenolate Sodium (DR) 180 MG TABLET.DR PO SCH ×2 (09:43→20:00)
[2020-07-22] MEDS: Sulfamethoxazole/Trimeth DS 1 EACH TABLET PO SCH (09:44)
[2020-07-22] MEDS: Famotidine 20 MG TABLET PO SCH (09:44)
[2020-07-22] MEDS: allopurinoL 100 MG TABLET PO SCH (09:44)
[2020-07-22] MEDS: Dexamethasone 4 MG/ML VIAL IVP SCH (09:44)
[2020-07-22] MEDS: calcitrioL 0.25 MCG CAPSULE PO SCH (09:44)
[2020-07-22] MEDS: traZODone 50 MG TABLET PO SCH (20:00)
[2020-07-23] MEDS: *HR* Enoxaparin 40 MG/0.4 ML SYRINGE SQ SCH (05:09)
[2020-07-23] MEDS: Acetaminophen 325 MG TABLET PO PRN ×2 (05:10→22:12)
[2020-07-23] MEDS: CycloSPORINE, Mod (Neoral) 25 MG CAPSULE PO SCH ×2 (05:10→16:58)
[2020-07-23] MEDS: polyethylene glycoL 3350 17 GM POWD.PACK PO SCH (07:56)
[2020-07-23] MEDS: Famotidine 20 MG TABLET PO SCH (07:57)
[2020-07-23] MEDS: calcitrioL 0.25 MCG CAPSULE PO SCH (07:57)
[2020-07-23] MEDS: Mycophenolate Sodium (DR) 180 MG TABLET.DR PO SCH ×2 (07:57→21:55)
[2020-07-23] MEDS: dexAMETHasone 4 MG TABLET PO SCH (07:58)
[2020-07-23] MEDS: Preparation H Ointment 57 GM TUBE TP SCH ×2 (07:58→22:12)
[2020-07-23] MEDS: Sennosides 8.6 MG TABLET PO SCH (07:58)
[2020-07-23] MEDS: allopurinoL 100 MG TABLET PO SCH (07:58)
[2020-07-23] MEDS: traZODone 50 MG TABLET PO SCH (21:56)
[2020-07-24] MEDS: CycloSPORINE, Mod (Neoral) 25 MG CAPSULE PO SCH ×2 (05:45→17:06)
[2020-07-24] MEDS: *HR* Enoxaparin 40 MG/0.4 ML SYRINGE SQ SCH (05:45)
[2020-07-24 07:33] LABS: Hematocrit 37.4 % (37.5-50.1); Hemoglobin 11.7 g/dL (12.9-16.9); Mean Corpuscular HGB Conc 31.3 g/dL (31.6-35.5); Mean Corpuscular Hemoglobin 28.3 pg (28.0-33.3); Mean Corpuscular Volume 90.6 fL (83.0-100.0); Mean Platelet Volume 9.6 fL (9.4-12.4); Platelet Count 362 K/mcL (140-400); Red Blood Count 4.13 M/mcL (4.19-5.50); Red Cell Distribution Width 14.9 % (11.5-14.5); White Blood Count 13.9 K/mcL (4.3-11.1)
[2020-07-24 07:50] LABS: BUN/Creatinine Ratio 36 (6-26); Blood Urea Nitrogen 44 mg/dL (8-23); Calcium 9.6 mg/dL (8.6-10.3); Carbon Dioxide 25 mEq/L (23-29); Chloride 101 mEq/L (98-107); Glucose 78 mg/dL (70-105); Magnesium 1.9 mg/dL (1.6-2.6); Osmolality,Calculated 288 (280-300); Potassium 4.2 mEq/L (3.5-5.1); Sodium 134 mEq/L (136-145); eGFR For African Americans > 60 (> 60); eGFR For Non-African Americans 59 (> 60)
[2020-07-24] MEDS: Preparation H Ointment 57 GM TUBE TP SCH ×2 (09:24→21:53)
[2020-07-24] MEDS: dexAMETHasone 4 MG TABLET PO SCH (09:24)
[2020-07-24] MEDS: Mycophenolate Sodium (DR) 180 MG TABLET.DR PO SCH ×2 (09:24→21:53)
[2020-07-24] MEDS: polyethylene glycoL 3350 17 GM POWD.PACK PO SCH (09:24)
[2020-07-24] MEDS: Famotidine 20 MG TABLET PO SCH (09:24)
[2020-07-24] MEDS: Sennosides 8.6 MG TABLET PO SCH (09:24)
[2020-07-24] MEDS: allopurinoL 100 MG TABLET PO SCH (09:24)
[2020-07-24] MEDS: calcitrioL 0.25 MCG CAPSULE PO SCH (09:24)
[2020-07-24] MEDS: traZODone 50 MG TABLET PO SCH (21:53)
[2020-07-25] MEDS: *HR* Enoxaparin 40 MG/0.4 ML SYRINGE SQ SCH (05:18)
[2020-07-25] MEDS: CycloSPORINE, Mod (Neoral) 25 MG CAPSULE PO SCH (05:18)
[2020-07-25] MEDS: Acetaminophen 325 MG TABLET PO PRN (08:32)
[2020-07-25] MEDS: Sennosides 8.6 MG TABLET PO SCH (08:32)
[2020-07-25] MEDS: Mycophenolate Sodium (DR) 180 MG TABLET.DR PO SCH (08:32)
[2020-07-25] MEDS: allopurinoL 100 MG TABLET PO SCH (08:33)
[2020-07-25] MEDS: Famotidine 20 MG TABLET PO SCH (08:33)
[2020-07-25] MEDS: dexAMETHasone 4 MG TABLET PO SCH (08:33)
[2020-07-25] MEDS: polyethylene glycoL 3350 17 GM POWD.PACK PO SCH (08:33)
[2020-07-25] MEDS: calcitrioL 0.25 MCG CAPSULE PO SCH (08:33)
[2020-07-25] MEDS: Preparation H Ointment 57 GM TUBE TP SCH (08:35)
[2020-07-25] MEDS ORDERED: Sulfamethoxazole/Trimeth DS 1 EACH TABLET PO SCH (09:00)
[2020-07-25 12:41] VITALS: BP 113/74
== END 2020-07-25 16:15 | disposition home or self-care (01) | DRG 871 ==
LOC: 2NNU 14:33 → EMEROOARM 14:33 → SUATTDRO 16:50 → 2NNU 18:34 → 2NENU 07-18 14:30
PROVIDERS: ADMIT Internal Medicine; ATTEND Internal Medicine